=== PATIENT | female | born 1975 | race Caucasian/White ===

== ENCOUNTER 2019-12-22 09:31 | Inpatient (IN) ==
[2019-12-15 11:20] LABS: Basophils % 0.5 % (0.0-0.8); Eosinophils % 0.4 % (0.00-10.9); Hematocrit 33.9 VOL% (35.7-47.0); Hemoglobin 10.9 GM/DL (12.0-16.0); Immature Granulocytes % 0.5 %; Immature Granulocytes Absolute 0.04 #; Lymphocytes # 1.4 10*3/uL (1.4-4.0); Lymphocytes % 19.6 % (21.3-54.2); Mean Corpuscular HGB Conc 32.2 GM/DL (32-36); Mean Corpuscular Volume 92.6 FL (87-102); Monocytes % 7.6 % (1.7-12.7); Neutrophils % 71.4 % (38.7-73.9); Platelet Count 443 T/CUMM (130-400); Red Blood Count 3.66 MC/CUMM (3.8-5.5); Red Cell Distribution Width 12.4 % (9.3-17.3); White Blood Count 7.4 T/CUMM (4-12)
[2019-12-15 11:55] LABS: Albumin 3.2 G/DL (3.4-5.0); Bilirubin,Total 0.9 MG/DL (0.2-1.0); Calcium 9.5 MG/DL (8.5-10.1); Osmolality,Calculated 271.8 MOS/KG (273-304); Risk Ratio 4.6; Total Protein 7.6 G/DL (6.4-8.3)
[2019-12-15 12:40] LABS: Urine Color Dark Yellow (Yellow)
[2019-12-15 12:41] LABS: Apearance,Urine Clear (Clear); Glucose,Urine (UA) Negative (Negative); Ketones,Urine 2+ mg/dL (Negative); Nitrite,Urine Positive (Negative); Protein,Urine Negative
[2019-12-15 12:42] LABS: Bacteria,Urine Few /HPF (Few); Bilirubin,Urine Negative (Negative); Blood, Urine Negative (Negative); RBC,Urine Rare /HPF (0-4); Squamous Epithelial Cell,Urine Few /HPF (0-10); WBC,Urine Rare /HPF (0-6)
[2019-12-15 12:56] LABS: HIV Antigen/Antibody Result Nonreactive (Nonreactive)
[~2019-12-22 09:31] MED LIST: AMPICILLIN/SULBACTAM 3,000 MG in SODIUM CHLORIDE 0.9% 100 ML IV ONE
[2019-12-22] MEDS ORDERED: FAMOTIDINE 20 MG TABLET ONE (10:11)
[2019-12-22] MEDS ORDERED: AMPICILLIN/SULBACTAM 3,000 MG VIAL ONE (10:11)
[2019-12-22] MEDS ORDERED: DIAZEPAM 5 MG TABLET ONE (10:11)
[2019-12-22] MEDS ORDERED: FAMOTIDINE 20 MG TABLET PO ONE (10:12)
[2019-12-22] MEDS ORDERED: DIAZEPAM 5 MG TABLET PO ONE (10:12)
[2019-12-22] MEDS ORDERED: FAMOTIDINE 20 MG/2 ML VIAL IV ONE (10:12)
[2019-12-22] MEDS ORDERED: LACTATED RINGERS 1,000 ML IV SCH ×2 (10:30→15:30)
[2019-12-22] MEDS ORDERED: SCOPOLAMINE 1.5 MG PATCH TRANSDERM ONE (11:08)
[2019-12-22] MEDS ORDERED: ROPIVACAINE 0.5% 30 ML VIAL ONE (12:07)
[2019-12-22] MEDS ORDERED: DEXAMETHASONE 4 MG/1 ML VIAL ONE ×2 (12:07→15:03)
[2019-12-22] MEDS ORDERED: LIDOCAINE 1% 5 ML VIAL ONE (12:07)
[2019-12-22] MEDS ORDERED: MICROFIBRILLAR COLLAGEN POWDER 1 GM CAN TOP ONE (12:49)
[2019-12-22] MEDS ORDERED: MIDAZOLAM 2 MG/2 ML VIAL ONE ×2 (12:58→15:03)
[2019-12-22] MEDS ORDERED: PROMETHAZINE 25 MG/1 ML VIAL ONE (13:40)
[2019-12-22] MEDS ORDERED: SUGAMMADEX 200 MG/2 ML VIAL IV ONE (14:35)
[2019-12-22 14:46] LABS: Apearance,Urine CLEAR (Clear); Bilirubin,Urine Negative (Negative); Blood, Urine Small mg/dL (Negative); Glucose,Urine (UA) Negative (Negative); Ketones,Urine 5 mg/dL (Negative); Mucus,Urine Occasional /LPF (Occasional); Nitrite,Urine Negative (Negative); Protein,Urine Negative; RBC,Urine 1 /HPF (0-4); Squamous Epithelial Cell,Urine Occasional /HPF (0-10); Urine Color Straw (Yellow); Urine Specific Gravity 1.009 (1.001-1.035); Urine Urobilinogen < 2.0 EU/DL (0.2-1.0); WBC,Urine <1 /HPF (0-6)
[2019-12-22] MEDS ORDERED: SEVOFLURANE 1 UNIT/15 MINUTE INH ONE (15:02)
[2019-12-22] MEDS ORDERED: propofoL 200 MG/20 ML VIAL IV ONE (15:02)
[2019-12-22] MEDS ORDERED: LIDOCAINE 2% 5 ML VIAL ONE (15:02)
[2019-12-22] MEDS ORDERED: ROCURONIUM 100 MG/10 ML VIAL IV ONE (15:03)
[2019-12-22] MEDS ORDERED: fentaNYL 250 MCG/5 ML VIAL ONE (15:03)
[2019-12-22] MEDS ORDERED: PHENYLEPHRINE 1 MG/10 ML SYRINGE IV ONE (15:03)
[2019-12-22] MEDS ORDERED: ONDANSETRON 4 MG/2 ML VIAL ONE (15:03)
[2019-12-22] MEDS ORDERED: ACETAMINOPHEN 1,000 MG/100 ML VIAL IV ONE (15:03)
[2019-12-22] MEDS ORDERED: KETOROLAC 30 MG/1 ML VIAL ONE (15:03)
[2019-12-22] MEDS ORDERED: LACTATED RINGERS 1,000 ML IV ONE (15:03)
[2019-12-22] MEDS ORDERED: ACETAMINOPHEN 325 MG TABLET PO PRN (15:14)
[2019-12-22] MEDS ORDERED: BISACODYL 10 MG SUPP RECTAL PRN (15:14)
[2019-12-22] MEDS ORDERED: ONDANSETRON 4 MG/2 ML VIAL IV PRN (15:14)
[2019-12-22] MEDS ORDERED: BENZOCAINE/MENTHOL LOZENGE 18/BOX PO PRN (15:14)
[2019-12-22] MEDS ORDERED: NALOXONE 0.4 MG/ML VIAL IV PRN (15:18)
[2019-12-22] MEDS ORDERED: MEPERIDINE 25 MG/1 ML VIAL IV PRN (15:24)
[2019-12-22] MEDS ORDERED: HYDROmorphone PCA 30 MG/30 ML SYRINGE IV ONE (15:26)
[2019-12-22] MEDS ORDERED: HYDROmorphone PCA 30 MG/30 ML SYRINGE IV SCH (15:30)
[2019-12-22 21:54] LABS: Basophils % 0.1 % (0.0-0.8); Hematocrit 36.4 VOL% (35.7-47.0); Hemoglobin 11.7 GM/DL (12.0-16.0); Immature Granulocytes % 0.4 %; Immature Granulocytes Absolute 0.06 #; Lymphocytes # 0.5 10*3/uL (1.4-4.0); Lymphocytes % 3.3 % (21.3-54.2); Mean Corpuscular HGB Conc 32.1 GM/DL (32-36); Mean Corpuscular Volume 90.1 FL (87-102); Mean Platelet Volume 8.5 FL (9.6-12.0); Monocytes % 1.3 % (1.7-12.7); Neutrophils % 94.9 % (38.7-73.9); Platelet Count 421 T/CUMM (130-400); Red Blood Count 4.04 MC/CUMM (3.8-5.5); Red Cell Distribution Width 12.5 % (9.3-17.3); White Blood Count 15.4 T/CUMM (4-12)
[2019-12-22] MEDS: ceFAZolin 1,000 MG in SYRINGE 1 EACH IV SCH (22:29)
[2019-12-23 04:23] LABS: Band Neutrophils 1 % (0-10); Lymphocytes 1 % (20-55); Platelet Estimate Normal; Segmented Neutrophils 98 % (50-85); Total Cells Counted 100
[2019-12-23] MEDS: ceFAZolin 1,000 MG in SYRINGE 1 EACH IV SCH (05:41)
[2019-12-23 06:20] LABS: Basophils % 0.1 % (0.0-0.8); Hematocrit 37.4 VOL% (35.7-47.0); Hemoglobin 11.9 GM/DL (12.0-16.0); Immature Granulocytes % 0.7 %; Immature Granulocytes Absolute 0.13 #; Lymphocytes # 0.9 10*3/uL (1.4-4.0); Mean Corpuscular HGB Conc 31.8 GM/DL (32-36); Mean Corpuscular Volume 92.6 FL (87-102); Mean Platelet Volume 8.9 FL (9.6-12.0); Monocytes % 4.4 % (1.7-12.7); Neutrophils % 89.8 % (38.7-73.9); Platelet Count 539 T/CUMM (130-400); Red Blood Count 4.04 MC/CUMM (3.8-5.5); Red Cell Distribution Width 12.7 % (9.3-17.3); White Blood Count 18.1 T/CUMM (4-12)
[2019-12-23] MEDS: MAGNESIUM HYDROXIDE SUSP 30 ML UDCUP PO PRN ×2 (10:09→21:16)
[2019-12-23] MEDS: METOCLOPRAMIDE 10 MG TABLET PO SCH ×3 (10:09→17:16)
[2019-12-23] MEDS: DILTIAZEM CD 120 MG CAPSULE PO SCH (10:13)
[2019-12-23] MEDS: IBUPROFEN 800 MG TABLET PO PRN ×2 (11:57→23:50)
[2019-12-23] MEDS: LEVOTHYROXINE 50 MCG TABLET PO SCH (11:57)
[2019-12-23] MEDS: SIMETHICONE CHEW 80 MG TABLET PO PRN ×2 (14:56→21:16)
[2019-12-23] MEDS: DOCUSATE SODIUM 100 MG CAPSULE PO PRN (21:16)
[2019-12-24] MEDS: METOCLOPRAMIDE 10 MG TABLET PO SCH (00:58)
[2019-12-24] MEDS: LEVOTHYROXINE 50 MCG TABLET PO SCH (06:32)
[2019-12-24] MEDS: DILTIAZEM CD 120 MG CAPSULE PO SCH (08:52)
[2019-12-24] MEDS: DOCUSATE SODIUM 100 MG CAPSULE PO PRN (08:52)
[2019-12-24] MEDS ORDERED: LEVOTHYROXINE 50 MCG TABLET PO SCH (10:00)
[2019-12-24 11:47] VITALS: BP 119/60
== END 2019-12-24 13:45 | disposition home or self-care (01) | DRG 743 ==
LOC: N.SDSINP 09:31 → N.OB 16:01
PROVIDERS: ADMIT Obstetrics & Gynecology; ATTEND Obstetrics & Gynecology